=== PATIENT | male | born 1950 | race Caucasian/White ===

== ENCOUNTER 2021-05-17 07:19 | Day surgery (SDC) | payer BC ==
[~2021-05-17] VITALS: Ht 172.7 cm; Wt 110.0 kg
[~2021-05-17 07:19] MED LIST: AMLO5; Aspirin EC81 MG; B-12500 MCG PO; BENAML10/2 PO; DESL5; DIPH25; Diclofenac Pota50 MG PO; FISH1000 PO; FLUT.05NI; LIVALO2 MG PO; MECL25 PO; MUPI2TC TOP; Multiple Vitam1 EAC1 PO; VITAMIN D5000 UNIT PO; Veramyst10 GM; XYZAL5 MG PO
--- NOTE | 2021-05-17 08:54 | NUR ---
05/17/21 0854 Bandar Warner See Anesthesia record KRISHNAUN. Patient to ENDO 1. History, Chart, Medications and Allergies reviewed before start of procedure. MONITOR INTACT WITH CONTINUOUS PULSE OXIMETRY AND INTERMITTENT BP. O2 VIA POM MASK INTACT THROUGHOUT SEDATION/PROCEDURE.
--- NOTE | 2021-05-17 09:53 | NUR ---
Patient up to Ambulate independently. Gait steady. Discharge instructions reviewed with patient. Patient verbalizes understanding. Copy given to patient to take home, [facility]. Patient States Post-Procedure ride home has been arranged. Discharged via wheelchair to private car for ride home.
== END 2021-05-17 09:53 | disposition home or self-care (01) ==
LOC: ORSCMMR 07:19 → ORD 09:00 → ORSCMMR 09:53
PROVIDERS: Surgery
PROC: 0DJD8ZZ Inspection of Lower Intestinal Tract, Via Natural or Artificial Opening Endoscopic (ICD-10-PCS; principal; 2021-05-17 09:00)
DX: Z12.11 Encounter for screening for malignant neoplasm of colon (principal); Z86.010 Personal history of colon polyps; K57.30 Diverticulosis of large intestine without perforation or abscess without bleeding; G47.33 Obstructive sleep apnea (adult) (pediatric); I10 Essential (primary) hypertension; K21.9 Gastro-esophageal reflux disease without esophagitis; E66.01 Morbid (severe) obesity due to excess calories; Z68.36 Body mass index [BMI] 36.0-36.9, adult; Z79.899 Other long term (current) drug therapy; Z79.82 Long term (current) use of aspirin
CPT/HCPCS: J2704; J7120

== ENCOUNTER → 2023-04-16 | Outpatient (CLI) | payer BC | LOC: LAB 12:27 → LAB SHORT 12:27 | DX: D48.5 Neoplasm of uncertain behavior of skin (principal) | CPT/HCPCS: 88305 ==

== ENCOUNTER 2025-05-14 22:32 | Emergency (ER) | payer BC ==
[~2025-05-14] VITALS: Ht 172.7 cm; Wt 113.4 kg
[2025-05-14] MEDS ORDERED: DiphenhydrAMINE HCl 50 MG/ML 1ML Vial IV ONE (23:00)
[2025-05-14] MEDS ORDERED: Prochlorperazine Edisylate 10 mg Vial IV ONE (23:00)
[2025-05-14] MEDS ORDERED: Ketorolac Tromethamine 15mg Vial IV ONE (23:00)
[2025-05-14 23:30] VITALS: BP 145/70
== END 2025-05-15 00:05 | disposition home or self-care (01) ==
LOC: ER 22:32
DX: G43.909 Migraine, unspecified, not intractable, without status migrainosus (principal); Z88.0 Allergy status to penicillin; Z79.899 Other long term (current) drug therapy; Z79.82 Long term (current) use of aspirin
CPT/HCPCS: 99283; A9270; J0780; J1200; J1885